=== PATIENT | female | born 1960 | race Caucasian/White ===

== ENCOUNTER 2017-08-16 14:37 | Emergency (ER) | payer BC ==
--- NOTE | 2017-08-16 15:05 | ED PDOC ---
HPI:STROKE - Time Time: 15:00 - Historian Historian: Patient - Onset Onset: Hours (x3-4) - Notes: Notes:: Trey Dyer is a 57 year old female with a past medical history of borderline diabetes, currently not on medication, presenting to the ED for an evaluation of a headache associated with nausea, onset 2 hours prior to arrival. The patient states she has not taken any medications for her headache and describes it as diffuse, pressure-like. The patient states around lunchtime, she experienced a headache which worsened and had a near syncopal episode. According to son, the patient was not able to see anything and was confused, with this episode lasting for 20 minutes, resolving spontaneously but pt then started to have multiple episodes of vomiting. Upon ED arrival, the patient still has nausea and headache. Currently she denies any focal weakness, difficulty speaking, and reports no loss of vision. PMD: MD Uma NIHSS Stroke Scale - Date/Time Evaluation Performed Date Performed: 08/16/17 Time Performed: 15:00 When Was NIHSS Performed: Baseline - How Severe is the Stroke Level of Consciousness: 0=Alert LOC to Questions: 0=Both comments correct LOC to commands: 0=Obeys both correctly Best Gaze: 0=Normal Visual: 0=No visual loss Facial: 0=Normal Motor Arm - Left: 0=No drift Motor Arm - Right: 0=No drift Motor Leg - Left: 0=No drift Motor Leg - Right: 0=No drift Limb Ataxia: 0=Absent Sensory: 0=Normal Best Language: 0=No aphasia Dysarthia: 0=Normal articulation Extinction & Inattention (Neglect): 0=Normal, no object Score: 0 rTPA Inclusion/Exclusion - Refusal of Treatment Patient Refused Treatment: No - Inclusion Criteria for Altepase Patient is 18 years or Older: Yes The Clinical Diagnosis of Ischemic Stroke That is Causing a Potentially Disabling Neurological Deficit: No Time of Onset is Well Established to be Less Than 270 Minute Before Treatment Would Begin: No Risk/Benefit Discussed With Patient/Family Member Present: No - Exclusion Criteria for Altepase Uncontrolled Hypertension at Time of Treatment (Systolic BP above 185 or Diastolic BP above 110 mmHg): No Past Medical History Reviewed: Historical Data, Nursing Documentation, Vital Signs Vital Signs: Last Vital Signs Temp Pulse 90 08/16/17 14:57 Resp 18 08/16/17 14:57 BP 150/79 08/16/17 14:57 Pulse Ox 99 08/16/17 14:57 - Medical History PMH: Diabetes (borderline diabetic (not on medication)) - Surgical History Surgical History: No Surg Hx - Family History Family History: States: Stroke - Social History Current smoker - smoking cessation education provided: No Ex-Smoker (has not smoked in the last 12 months): No - Home Medications Home Medications: Ambulatory Orders Medication Instructions Recorded Ondansetron ODT [Zofran ODT] 1 odt PO Q6 PRN #20 odt 08/16/17 - Allergies Allergies/Adverse Reactions: Allergies Allergy/AdvReac Type Severity Reaction Status Date / Time No Known Allergies Allergy Verified 08/16/17 14:57 Review of Systems ROS Statement: Except As Marked, All Systems Reviewed And Found Negative (and as per HPI) Eyes: Negative for: Vision Change (no loss of vision) Gastrointestinal: Positive for: Nausea, Vomiting Neurological: Positive for: Confusion, Headache. Negative for: Weakness (no focal weakness), Change in Speech (no difficulty speaking) Physical Exam - Reviewed Nursing Documentation Reviewed: Yes Vital Signs Reviewed: Yes - Physical Exam Appears: Positive for: Uncomfortable, In Acute Distress Head Exam: Positive for: ATRAUMATIC, NORMOCEPHALIC Skin: Positive for: Warm, Dry Eye Exam: Positive for: EOMI, PERRL. Negative for: Nystagmus, Conjunctival injection ENT: Positive for: Pharynx Is (clear) Neck: Positive for: Painless ROM, Supple Cardiovascular/Chest: Positive for: Regular Rate, Rhythm, Chest Non Tender. Negative for: Murmur Respiratory: Positive for: Normal Breath Sounds. Negative for: Respiratory Distress Gastrointestinal/Abdominal: Positive for: Soft. Negative for: Tenderness, Mass , Distended, Guarding Back: Positive for: Normal Inspection. Negative for: Decreased ROM Extremity: Positive for: Normal ROM. Negative for: Deformity Lymphatic: Negative for: Adenopathy Neurologic/Psych: Positive for: Alert, emergency room physician II-XII (intact), Oriented (x3). Negative for: Motor/Sensory Deficits - Laboratory Results Result Diagrams: 08/16/17 15:23 08/16/17 15:23 - ECG ECG: Positive for: Interpreted By Me ECG Rhythm: Positive for: Normal ST Segment, Sinus Rhythm O2 Sat by Pulse Oximetry: 99 (RA) Pulse Ox Interpretation: Normal Medical Decision Making Medical Decision Making: Time: 15:00 Impression: Headache and transient loss of vision and perfusion Differential includes but is not limited to CVA, migraine headache, syncope, aneurysm, brain mass. Plan: * Labs * Blood work * ED EKG * Zofran 8 mg IV * [RAD] Chest Portable * CT Angio * CT Head CT Head: FINDINGS: HEMORRHAGE: No intracranial hemorrhage. BRAIN: No mass effect or edema. No atrophy or chronic microvascular ischemic changes. VENTRICLES: Unremarkable. No hydrocephalus. CALVARIUM: Unremarkable. PARANASAL SINUSES: Unremarkable as visualized. No significant inflammatory changes. MASTOID AIR CELLS: Unremarkable as visualized. No inflammatory changes. OTHER FINDINGS: None. IMPRESSION: Normal CT of the Head. 15:33 Discussed patient's findings with family, patient will have a CT angio and then be hospitalized for further evaluation of TIA pending ER workup. 6p Initially pt denied taking any new medications or foods. Son now discovered that pt may have had some of his marijuana-infused chocolate from his refrigerator. She says she ate it at around 9am thinking it was just a piece of chocolate. The amount she took was about 20mg edible cannibis. Her symptoms started about 10am. She has never had marijuana or any cannabinoid before. She said that she thought she was seeing things, was extremely lightheaded and nauseous. She thought eating would help which is why she went out for lunch but this made her more confused and lightheaded, and then passed out and vomited. With this revelation, and labs and CT head and CTA head/neck being normal, it appears that her symptoms are in fact c/w acute cannibanoid intoxication. UDS ordered. 630p UDS positive for cannabinoids. Pt feeling much better. Tolerated food and fluid in ER. Ambulating without difficulty. Eager to go home. Educated family on dangers of drug abuse. Scribe Attestation: Documented by Mary Stafford, acting as a scribe for Christina Arellano MD. Provider Scribe Attestation: All medical record entries made by the Scribe were at my direction and personally dictated by me. I have reviewed the chart and agree that the record accurately reflects my personal performance of the history, physical exam, medical decision making, and the department course for this patient. I have also personally directed, reviewed, and agree with the discharge instructions and disposition. Disposition - Clinical Impression Clinical Impression: Accidental marijuana poisoning Counseled Patient/Family Regarding: Studies Performed, Diagnosis - Disposition Disposition: Routine/Home Disposition Time: 18:30 Condition: IMPROVED Additional Instructions: KEEP ALL MEDICATIONS AND DRUGS CLEARLY LABEL TO PREVENT ACCIDENTAL INGESTION. RETURN TO ER FOR WORSENING SYMPTOMS Prescriptions: Ondansetron ODT [Zofran ODT] 1 odt PO Q6 PRN #20 odt PRN Reason: Nausea/Vomiting Instructions: Acute Delirium (GEN), Cannabis Abuse (ED), Adult Overdose (ED) Forms: [facility] ED School/Work Excuse
--- NOTE | 2017-08-16 15:21 | CT ---
PROCEDURE: CT HEAD WITHOUT CONTRAST. HISTORY: code stroke COMPARISON: None available. TECHNIQUE: Axial computed tomography images were obtained through the head/brain without intravenous contrast. Radiation dose: Total exam DLP = 7 8 1 mGy-cm. This CT exam was performed using one or more of the following dose reduction techniques: Automated exposure control, adjustment of the mA and/or kV according to patient size, and/or use of iterative reconstruction technique. FINDINGS: HEMORRHAGE: No intracranial hemorrhage. BRAIN: No mass effect or edema. No atrophy or chronic microvascular ischemic changes. VENTRICLES: Unremarkable. No hydrocephalus. CALVARIUM: Unremarkable. PARANASAL SINUSES: Unremarkable as visualized. No significant inflammatory changes. MASTOID AIR CELLS: Unremarkable as visualized. No inflammatory changes. OTHER FINDINGS: None. IMPRESSION: Normal CT of the Head.
[2017-08-16] MEDS ORDERED: Iodixanol 320 MG/ML 100 ML BOTTLE IV ONE (15:34)
[2017-08-16 15:35] LABS: BASO # 0.1 K/uL (0.0-0.2); BASO % 1.4 % (0.0-2.0); EOS # 0.1 K/uL (0.0-0.7); EOS % 1.2 % (0.0-4.0); LYMPH % 41.4 % (20.0-40.0); MEAN CELL VOLUME 89.9 fl (81.0-99.0); MEAN CORPUSCULAR HEMOGLOBIN 30.1 pg (27.0-31.0); MEAN CORPUSCULAR HGB CONC 33.5 g/dL (33.0-37.0); MEAN PLATELET VOLUME 8.7 fl (7.2-11.7); MONO # 0.3 K/uL (0.0-0.8); MONO % 5.5 % (0.0-10.0); NEUT # 2.5 K/uL (1.8-7.0); NEUT % 50.5 % (50.0-75.0); NRBC % 0.1 % (0.0-0.0); RBC 4.31 Mil/uL (3.80-5.20); RED CELL DISTRIBUTION WIDTH 13.6 % (11.5-14.5); WHITE BLOOD COUNT 4.9 K/uL (4.8-10.8)
--- NOTE | 2017-08-16 15:43 | RAD ---
HISTORY: code storke COMPARISON: No prior. FINDINGS: LUNGS: No active pulmonary disease. PLEURA: No significant pleural effusion identified, no pneumothorax apparent. CARDIOVASCULAR: Normal. OSSEOUS STRUCTURES: No significant abnormalities. VISUALIZED UPPER ABDOMEN: Normal. OTHER FINDINGS: None. IMPRESSION: No active disease.
[2017-08-16 15:48] LABS: ALB/GLOB RATIO 1.5 (1.0-2.1); ALBUMIN 4.5 g/dL (3.5-5.0); ALT/SGPT 32 U/L (9-52); AST/SGOT 22 U/L (14-36); BLOOD UREA NITROGEN 28 mg/dl (7-17); CALCIUM 9.1 mg/dL (8.4-10.2); GFR AFRICAN-AMERICAN > 60; GFR NON-AFRICAN AMERICAN > 60; HDL CHOLESTEROL 70 MG/DL (30-70)
[2017-08-16 15:51] LABS: INR 1.1 (0.9-1.2); PARTIAL THROMBOPLASTIN TIME 30.7 Seconds (25.6-37.1); PROTHROMBIN TIME 11.7 Seconds (9.8-13.1)
[2017-08-16] MEDS ORDERED: Sodium Chloride 0.9% 500 ML IV STA (15:53)
[2017-08-16 15:59] LABS: LDL CHOLESTEROL 122 mg/dL (0-129)
[2017-08-16] MEDS ORDERED: Sodium Chloride 0.9% 50 ML IV ONE (16:03)
[2017-08-16 17:22] VITALS: BP 113/68; PULSE 78; RESP 12; O2SAT 99
[2017-08-16] MEDS ORDERED: Dextrose 5%/Lactated Ringer's 1,000 ML IV SCH (18:00)
[2017-08-16 18:24] LABS: BARBITURATES, UR NEGATIVE (NEGATIVE); BENZODIAZEPINES, UR NEGATIVE (NEGATIVE); OPIATES, UR NEGATIVE (NEGATIVE); PHENCYCLIDINE, UR NEGATIVE (NEGATIVE)
--- NOTE | 2017-08-17 09:32 | CARD ---
APPROVED REPORT EKG Measurement Heart [id number] <Conclusion> Normal sinus rhythm Possible Left atrial enlargement Borderline ECG
--- NOTE | 2017-08-17 11:46 | CT ---
PROCEDURE: CT Angiography of the Brain. HISTORY: severe headache and TIA AND N/V COMPARISON: None available. TECHNIQUE: CT angiography of the intracranial and neck arteries was performed. Coronal and sagittal maximum intensity projection reformated images were generated. Intravenous contrast utilized: Visipaque 320, 80 cc. Total DLP dose: 497.04 mGy-cm. This CT exam was performed using one or more of the following dose reduction techniques: Automated exposure control, adjustment of the mA and/or kV according to patient size, and/or use of iterative reconstruction technique. FINDINGS: INTERNAL CEREBRAL ARTERIES: Unremarkable. The skull base, petrous, cavernous and supraclinoid segments are bilaterally widely patent. ANTERIOR CEREBRAL ARTERIES: Unremarkable. A1 and A2 segments are widely patent. Smaller distal branches unremarkable, as visualized. MIDDLE CEREBRAL ARTERIES: Unremarkable. M1 and M2 segments are widely patent. Perisylvian branches grossly symmetric. POSTERIOR CIRCULATION: Basilar Artery: No significant stenosis identified. Distal Vertebral Arteries: Ectatic but with no significant stenosis. Posterior Cerebral Arteries: Patent without significant stenosis. Posterior Inferior Cerebellar Arteries: Unremarkable. NECK CTA: Common carotid arteries: The bilateral common carotid appear widely patent from their origins to their bifurcations with no significant stenosis appreciated. No evidence to suggest common carotid artery dissection. Internal carotid arteries: No significant stenosis is appreciated throughout the cervical internal carotid artery segments bilaterally and there is no evidence of dissection either. Vertebral arteries: The bilateral vertebral arteries appear normal in caliber from their origins to their junction with the basilar artery. Vertebrobasilar system appears right dominant. No significant stenosis or definite pattern of dissection. Incidentally, the bilateral subclavian arteries are widely patent as well as the brachiocephalic artery. Limited atherosclerotic plaque is seen at the right side of the right subclavian artery origin. ANEURYSM/ VASCULAR MALFORMATIONS: None. OTHER FINDINGS: Incidental note is made of probable post granulomatous fibrotic changes in the right apex which are minimally calcified. IMPRESSION: Unremarkable CT Angiography of the Brain. No significant stenosis appreciated at the bilateral common and internal carotid arteries in the neck as well as the bilateral vertebral arteries.
== END 2017-08-16 19:05 | disposition home or self-care (01) ==
LOC: H.ER 14:37 → UNDOADMOB 17:47 → H.ERHOLD 17:47 → H.ER 19:05
DX: T40.7X1A Poisoning by cannabis (derivatives), accidental (unintentional), initial encounter (principal); Z87.891 Personal history of nicotine dependence; E13.8 Other specified diabetes mellitus with unspecified complications; E11.8 Type 2 diabetes mellitus with unspecified complications
CPT/HCPCS: 70450; 70496; 70498; 71010; 80053; 80061; 83036; 84484; 85025; 85610; 85730; 86850; 86900; 93005; 96361; 96374; 99283; G0480; J2405; J7040; J7120; Q9967